=== PATIENT | male | born 1955 | race Caucasian/White ===

== ENCOUNTER → 2023-01-22 14:43 | Outpatient (BNVA) | payer OTHER, SELFPAY | PROVIDERS: PCP Family Medicine; Visit Provider Internal Medicine | DX: M47.812 Spondylosis without myelopathy or radiculopathy, cervical region (principal); M96.1 Postlaminectomy syndrome, not elsewhere classified | CPT/HCPCS: 99202 ==

== ENCOUNTER 2023-02-16 10:41 | Outpatient (AMB) | payer OTHER, SELFPAY ==
--- NOTE | 2023-02-16 10:42 | A.OFFVIS_ITS ---
Intake Vital Signs 02/16/23 10:43 Height 5 ft 7 in BP 187/84 H Blood Pressure Location Lt brachial Position Sitting Respiration 14 Pulse 79 Pulse Source Pulse Oximeter Pulse Oximetry (%) 94 Oxygen Delivery Method Room Air Intake Visit Reasons: exam to overturn denial Allergies celecoxib [From Celebrex] Adverse Reaction (Severe, Verified 02/16/23 10:45) liver damage methadone Adverse Reaction (Severe, Verified 02/16/23 10:45) altered thoughts naproxen Adverse Reaction (Intermediate, Verified 02/16/23 10:45) GI upset pregabalin [From Lyrica] Adverse Reaction (Unknown, Verified 02/16/23 10:45) Unknown roflumilast [From Daliresp] Adverse Reaction (Unknown, Verified 02/16/23 10:45) Unknown axid Allergy (Intermediate, Uncoded 02/16/23 10:45) causes platlets to drop Medication List - Last Reconciled 02/16/23 by Melissa Winslow LPN albuterol sulfate 90 mcg/actuation 2 puffs inhalation Q6H PRN allopurinol 100 mg PO DAILY azithromycin 250 mg PO DAILY baclofen 10 mg PO TID bupropion HCl (Forfivo XL) 450 mg PO DAILY diltiazem HCl 360 mg PO DAILY famotidine 40 mg PO DAILY fluticasone furoate 100 mcg/actuation (Arnuity Ellipta) 1 inh inhalation DAILY furosemide 0 mg PO gabapentin 200 mg PO BEDTIME methylphenidate HCl ER 36 mg PO DAILY mirtazapine 45 mg PO BEDTIME oxycodone 15 - 30 mg PO Q6H oxycodone ER (OxyContin) 80 mg PO Q12H pantoprazole 40 mg PO DAILY pravastatin 20 mg PO DAILY tamsulosin 0.4 mg PO QPM testosterone 0 mg topical HPI exam to overturn denial HPI Details 67-year-old male presenting today for a repeat evaluation of cerv icalgia. Our request for cervical medial branch blocks was denied by worker's comp due to prior history of lack of response to facet blocks as well as lack of physical exam documentation per the last note. The patient had a SCS trial for his neck pain by Dr. Moran 4-5 months ago, with less than 50% relief, so an eventual implant was abandoned. The patient has tried physical therapy and acupuncture in the past with no benefits. [facility] Medical History (Updated 01/22/23 @ 16:32 by Brent Ray) Cervicalgia COPD (chronic obstructive pulmonary disease) Hypogonadism in male JEFF (obstructive sleep apnea) Urinary hesitancy Review of Systems Const All systems reviewed & are unremarkable except as noted in HPI and below Physical Exam Vital Signs: Last Vital Signs Pulse 79 02/16/23 10:43 Resp 14 02/16/23 10:43 BP 187/84 H 02/16/23 10:43 Pulse Ox 94 02/16/23 10:43 Oxygen Delivery Method Room Air 02/16/23 10:43 General: Appears afebrile. Alert and oriented. Mood and affect appropriate. Follows and participates in conversation appropriately. Respiratory effort is unlabored. Able to transition from sit to stand unassisted. Ambulates with bilaterally normal heel strike and toe off. Cervical Spine: Exam is very limited due to lack of any meaningful cervical range of motion. He is unable to extend his neck at all and is fixed in the midline position. Lateral rotation to the left is severely limited below 10 degrees. Lateral rotation to the right side is below 20 degrees. Unable?to?load?facet?due?to?inability?to?extend?the?neck. Results Reviewed Results Reviewed: 07/07/21: MR CERVICAL SPINE Assessment & Plan Assessment & Plan (1) Cervical post-laminectomy syndrome: Code(s): M96.1 - Postlaminectomy syndrome, not elsewhere classified (2) Cervical spondylosis: Code(s): M47.812 - Spondylosis without myelopathy or radiculopathy, cervical region Plan 67-year-old male with a prior history of C3-C7 fusion with residual neck pain. Unfortunately he did not have a successful SCS trial. While he does have a history of nondiagnostic cervical facet blocks, he does have evidence of cervical facet arthropathy on imaging. His exam is extremely limited and we are unable to meaningfully check for facet loading given lack of cervical extension. In the absence of any other potential therapeutic options available to him, I feel a repeat round of diagnostic injections targeted towards the facets is warranted. Will file a repeat prior authorization request to [facility] for approval of facet injections based on physical exam findings as well as cervical spine MRI findings of facet arthropathy and prior history of cervical spine fusion with coexisting facet disease. Scribed for Dr. Chavez by Brent Ray, medical secretary, on 02/16/2023. I, Dr. Chavez, have personally reviewed and agree with the information entered by the scribe. Coding Level of Care Code Est Pt Level 3 (08588) Diagnoses Cervical post-laminectomy syndrome M96.1 Cervical spondylosis M47.812
[2023-02-16 10:43] VITALS: BP 187/84; PULSE 79; RESP 14; O2SAT 94
== END 2023-02-16 11:30 | disposition home or self-care (01) ==
PROVIDERS: PCP Family Medicine; Visit Provider Internal Medicine
DX: M96.1 Postlaminectomy syndrome, not elsewhere classified (principal); M47.812 Spondylosis without myelopathy or radiculopathy, cervical region
CPT/HCPCS: 99213

== ENCOUNTER → 2023-02-16 10:41 | Outpatient (BNVA) | payer OTHER, SELFPAY | PROVIDERS: PCP Family Medicine; Visit Provider Internal Medicine | DX: M47.812 Spondylosis without myelopathy or radiculopathy, cervical region (principal); M96.1 Postlaminectomy syndrome, not elsewhere classified; Z79.899 Other long term (current) drug therapy | CPT/HCPCS: 99212 ==

== ENCOUNTER 2023-05-09 06:00 | Outpatient (REF) | payer OTHER, SELFPAY | END 2023-05-09 06:01 | disposition home or self-care (01) | LOC: CF 06:00 | PROVIDERS: Visit Provider Internal Medicine | DX: M47.812 Spondylosis without myelopathy or radiculopathy, cervical region (principal) | CPT/HCPCS: 64490; 64491 ==

== ENCOUNTER 2023-05-09 09:30 | Outpatient (AMB) | payer OTHER, SELFPAY ==
--- NOTE | 2023-05-09 09:35 | MHC.OFFVIS ---
Intake Vital Signs 05/09/23 09:36 05/09/23 10:39 BP 150/70 H 160/82 H Blood Pressure Location Rt brachial Rt brachial Position Sitting Sitting Respiration 14 14 Pulse 66 77 Pulse Source Pulse Oximeter Pulse Oximeter Pulse Oximetry (%) 96 96 Oxygen Delivery Method Room Air Room Air Intake Visit Reasons: Cristobal Dx C3-C4-C5 MBB Allergies celecoxib [From Celebrex] Adverse Reaction (Severe, Verified 05/09/23 09:36) liver damage methadone Adverse Reaction (Severe, Verified 05/09/23 09:36) altered thoughts naproxen Adverse Reaction (Intermediate, Verified 05/09/23 09:36) GI upset pregabalin [From Lyrica] Adverse Reaction (Unknown, Verified 05/09/23 09:36) Unknown roflumilast [From Daliresp] Adverse Reaction (Unknown, Verified 05/09/23 09:36) Unknown axid Allergy (Intermediate, Uncoded 05/09/23 09:36) causes platlets to drop HPI Cristobal Dx C3-C4-C5 MBB HPI Details Patient presents for scheduled procedure. Denies any recent cough, cold, infection, fever or other significant changes in medical history since last office visit. [facility] Medical History (Updated 01/22/23 @ 16:32 by Brent Ray) Urinary hesitancy Hypogonadism in male JEFF (obstructive sleep apnea) COPD (chronic obstructive pulmonary disease) Cervicalgia Physical Exam Vital Signs: Last Vital Signs Pulse 66 05/09/23 09:36 Resp 14 05/09/23 09:36 BP 150/70 H 05/09/23 09:36 Pulse Ox 96 05/09/23 09:36 Oxygen Delivery Method Room Air 05/09/23 09:36 Office Procedures Cervical/Thoracic Facet Inj Details: Diagnostic Cervical Medial Branch Block, Bilateral C3, C4, C5 medial branches After obtaining written consent, pre-procedure blood pressure and pulse were recorded and are in the nursing record for review. The patient was placed in a lateral position. The respective cervical area was prepped with chloraprep and draped in sterile fashion. The skin over the target medial branch nerves was anesthetized with 0.5% lidocaine. A 25 gauge 1.5 inch needle was inserted into the target medial branch nerve under fluoroscopic guidance. No paresthesias were elicited with needle placement and aspiration was negative for blood and CSF. Next, 0.2cc of omnipaque 180 was injected to verify positioning. Next 0.5 ml 0.5% ropivicaine was injected (0.5 cc total per level). The identical procedure was performed at the remaining levels. The skin was cleansed and a sterile bandage was applied. Following the procedure the patient's vital signs were stable. The patient tolerated the procedure well and no complications were encountered. Following the procedure the patient's vital signs were stable. The patient was discharged home in good condition with post-procedural instructions. Time Out: Immediately prior to the procedure, the following was verbally confirmed that there is a signed consent form and that the correct patient, planned procedure, site and side are consistent with documentation and that necessary equipment and/or blood products are available prior to the start of the case. Complications: none EBL: <5 cc 73755 - second level, with Fluoroscopy (bilateral) Procedure code (CPT) selection complete Assessment & Plan Assessment & Plan (1) Cervical spondylosis: Code(s): M47.812 - Spondylosis without myelopathy or radiculopathy, cervical region Plan Patient is status post bilateral C3, C4, C5 diagnostic MBBs. Patient tolerated procedure well and was discharged home in stable condition with discharge instructions. All questions were answered. We will follow-up via telephone or in clinic to assess response to therapy. A follow-up appointment was made during today's visit. Orders: Orders FL guidance in treatment room Today M47.812 - Spondylosis without myelopathy or radiculopathy, cervical region Coding Level of Care Code Procedure Only Diagnoses Cervical spondylosis M47.812 CPT Codes Facet Injection Cervical/Thoracic - CPT: 14029 - second level, with Fluoroscopy ([id number])
[2023-05-09 09:36] VITALS: BP 150/70; PULSE 66; RESP 14; O2SAT 96
[2023-05-09 10:39] VITALS: BP 160/82; PULSE 77; RESP 14; O2SAT 96
== END 2023-05-09 10:49 | disposition home or self-care (01) ==
LOC: HO.PMCPRC 09:30
PROVIDERS: PCP Family Medicine; Visit Provider Internal Medicine
DX: M47.812 Spondylosis without myelopathy or radiculopathy, cervical region (principal)
CPT/HCPCS: 64490; 64491

== ENCOUNTER 2023-05-11 11:28 | Outpatient (AMB) | payer OTHER, SELFPAY ==
--- NOTE | 2023-05-11 11:33 | MHC.OFFVIS ---
Intake Vital Signs 05/11/23 11:34 Height 5 ft 7 in Weight 216 lb BMI 33.8 Blood Pressure Location Rt brachial Position Sitting Respiration 14 Pulse Source Pulse Oximeter Intake Visit Reasons: s/p nato Dx C3-C4-C5 MBB Allergies celecoxib [From Celebrex] Adverse Reaction (Severe, Verified 05/11/23 11:36) liver damage methadone Adverse Reaction (Severe, Verified 05/11/23 11:36) altered thoughts naproxen Adverse Reaction (Intermediate, Verified 05/11/23 11:36) GI upset pregabalin [From Lyrica] Adverse Reaction (Unknown, Verified 05/11/23 11:36) Unknown roflumilast [From Daliresp] Adverse Reaction (Unknown, Verified 05/11/23 11:36) Unknown axid Allergy (Intermediate, Uncoded 05/11/23 11:36) causes platlets to drop Medication List - Last Reconciled 05/11/23 by Melissa Winslow LPN albuterol sulfate 90 mcg/actuation 2 puffs inhalation Q6H PRN allopurinol 100 mg PO DAILY baclofen 10 mg PO TID bupropion HCl (Forfivo XL) 450 mg PO DAILY diltiazem HCl 360 mg PO DAILY famotidine 40 mg PO DAILY fluticasone furoate 100 mcg/actuation (Arnuity Ellipta) 1 inh inhalation DAILY furosemide 0 mg PO gabapentin 200 mg PO BEDTIME methylphenidate HCl ER 36 mg PO DAILY mirtazapine 45 mg PO BEDTIME oxycodone 15 - 30 mg PO Q6H oxycodone ER (OxyContin) 80 mg PO Q12H pantoprazole 40 mg PO DAILY pravastatin 20 mg PO DAILY tamsulosin 0.4 mg PO QPM testosterone 0 mg topical HPI s/p nato Dx C3-C4-C5 MBB HPI Details 67-year-old male who presents today to the office for a status post bilateral diagnostic C3-C4-C5 MBB. The patient reports no relief following the procedure. The patient already had trial of spinal cord stimulator earlier this year without any benefit. He states that his pain is localized more on the left side than right side. He is not interested in re-trialing with a different device company. Past procedure: 05/09/23: Diagnostic Cervical Medial Branch Block, Bilateral C3, C4, C5 medial branches: No relief. [facility] Medical History (Updated 01/22/23 @ 16:32 by Brent Ray) Urinary hesitancy Hypogonadism in male JEFF (obstructive sleep apnea) COPD (chronic obstructive pulmonary disease) Cervicalgia Review of Systems Const All systems reviewed & are unremarkable except as noted in HPI and below Physical Exam Vital Signs: Last Vital Signs Resp 14 05/11/23 11:34 BMI result Body Mass Index 33.8 General: Appears afebrile. Alert and oriented. Mood and affect appropriate. Follows and participates in conversation appropriately. Respiratory effort is unlabored. Able to transition from sit to stand unassisted. Ambulates with bilaterally normal heel strike and toe off. Results Reviewed Results Reviewed: No imaging is available for review. Assessment & Plan Assessment & Plan (1) Cervical post-laminectomy syndrome: Code(s): M96.1 - Postlaminectomy syndrome, not elsewhere classified (2) Cervical spondylosis: Code(s): M47.812 - Spondylosis without myelopathy or radiculopathy, cervical region Plan Discussed temporary nerve stimulator vs. pain pump as a possible treatment options. Peripheral nerve stimulator and pain pump device brochures were provided to the patient. If he is interested in proceeding, we will schedule him for Left C3 medial branch nerve stimulator trial. Discussed the risks and benefits of the procedure with the patient in detail. All questions were answered. The patient is on board with the plan. Also informed the patient that insurance approval is required. We will file a PA for approval and keep him updated. Justification for interventional therapy: ? Patient with average pain > 6/10 ? Patient has exhausted and failed conservative therapy as well as spinal cord stimulation trial Scribed for Dr. Chavez by Brent Ray, medical microbiologist, on 05/11/2023. I, Dr. Chavez, have personally reviewed and agree with the information entered by the scribe. Coding Level of Care Code Est Pt Level 3 (78130) Diagnoses Cervical post-laminectomy syndrome M96.1 Cervical spondylosis M47.812
[2023-05-11 11:34] VITALS: RESP 14; BMI 33.8
== END 2023-05-11 11:50 | disposition home or self-care (01) ==
PROVIDERS: PCP Family Medicine; Visit Provider Internal Medicine
DX: M96.1 Postlaminectomy syndrome, not elsewhere classified (principal); M47.812 Spondylosis without myelopathy or radiculopathy, cervical region
CPT/HCPCS: 99213

== ENCOUNTER → 2023-05-11 11:28 | Outpatient (BNVA) | payer OTHER, SELFPAY | PROVIDERS: PCP Family Medicine; Visit Provider Internal Medicine | DX: M96.1 Postlaminectomy syndrome, not elsewhere classified (principal); M47.812 Spondylosis without myelopathy or radiculopathy, cervical region; Z98.890 Other specified postprocedural states | CPT/HCPCS: 99212 ==